=== PATIENT | male | born 1995 | race African-American/Black ===

== ENCOUNTER 2021-05-21 06:21 | Emergency (ER) | payer OTHER, BC ==
[~2021-05-21] VITALS: Ht 190.5 cm; Wt 65.0 kg
== END 2021-05-21 07:28 | disposition home or self-care (01) ==
LOC: ED 06:21
DX: S90.212A Contusion of left great toe with damage to nail, initial encounter (principal); X58.XXXA Exposure to other specified factors, initial encounter; Y99.0 Civilian activity done for income or pay
CPT/HCPCS: 73660; 99283-25

== ENCOUNTER 2021-08-05 06:53 | Emergency (ER) | payer BC ==
[~2021-08-05] VITALS: Ht 190.5 cm; Wt 66.0 kg
== END 2021-08-05 07:58 | disposition home or self-care (01) ==
LOC: ED 06:53
DX: S60.221A Contusion of right hand, initial encounter (principal); W22.8XXA Striking against or struck by other objects, initial encounter
CPT/HCPCS: 73130; 99283-25

== ENCOUNTER 2021-08-19 11:37 | Emergency (ER) | payer BC ==
[~2021-08-19] VITALS: Ht 190.5 cm; Wt 67.6 kg
--- OUTSIDE RECORDS SUMMARY | 2021-08-19 11:44 | XMS ---
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 Martin has no Care Guidelines for this patient. Urszula VISIT COUNT (12 MO.) 3 [facility] TOTAL 3 NOTE: Visits indicate total known visits. ED/C VISIT TRACKING (12 MO.) [facility] COMPLAINT: - FEVER, BODY ACHES, HEADACHE, COUGH 08/05/2021 06:53 [facility] [place] TYPE: Emergency COMPLAINT: - R HAND PAIN DIAGNOSES: - Contusion of right hand, initial encounter - Striking against or struck by other objects, initial encounter 05/21/2021 06:22 [facility] [place] TYPE: Emergency COMPLAINT: - L BIG TOE INJURY DIAGNOSES: - Exposure to other specified factors, initial encounter - Contusion of left great toe with damage to nail, initial encounter - Civilian activity done for income or pay - Pain in left toe(s) INPATIENT VISIT TRACKING (12 MO.) No inpatient visits to display in this time frame [email or web address]
== END 2021-08-19 14:11 | disposition home or self-care (01) ==
LOC: ED 11:37
DX: J10.1 Influenza due to other identified influenza virus with other respiratory manifestations (principal); Z20.822 Contact with and (suspected) exposure to COVID-19
CPT/HCPCS: 87502; 99283; A9270; U0003

== ENCOUNTER 2024-10-30 09:49 | Emergency (ER) | payer OTHER, BC ==
[~2024-10-30] VITALS: Ht 190.5 cm; Wt 69.0 kg
[2024-10-30] MEDS ORDERED: CYCLOBENZAPRINE10 MG PO (10:13)
[2024-10-30] MEDS ORDERED: ACETAMINOPHEN 500 MG TAB PO ONE (10:15)
[2024-10-30] MEDS ORDERED: IBUPROFEN 600 MG TAB PO ONE (10:15)
[2024-10-30] MEDS ORDERED: LIDOCAINE HCL 4% 1 EACH PATCH TD ONE (10:15)
[2024-10-30 10:23] VITALS: BP 112/70
[2024-10-30] MEDS ORDERED: LIDOCAINE PATCH REMOVAL 1 EA TD SCH (21:00)
== END 2024-10-30 10:24 | disposition home or self-care (01) ==
LOC: ED 09:49
DX: S16.1XXA Strain of muscle, fascia and tendon at neck level, initial encounter (principal); M54.9 Dorsalgia, unspecified; X50.1XXA Overexertion from prolonged static or awkward postures, initial encounter
CPT/HCPCS: 99283; A9270